=== PATIENT | male | born 1935 | race Caucasian/White ===

== ENCOUNTER 2016-10-13 17:37 | Emergency (ER) | payer MEDICARE, BC ==
[2016-10-13 17:48] VITALS: BP 149/71
--- NOTE | 2016-10-13 18:07 | EDM.PDOC ---
ED HPI GENERAL MEDICAL PROBLEM - General Chief Complaint: Genitourinary Problem Stated Complaint: STOMACH PROB Time Seen by Provider: 10/13/16 17:59 Source of Information: Reports: EMS Notes Reviewed (), Family, RN History Limitations: Reports: No Limitations - History of Present Illness Onset: Today, Gradual Duration: Hour(s): Location: Reports: Abdomen (lower abdomen, felt distended, Haque catheter wasn' t putting out much urine as it mucous plugging) Quality: Reports: Ache, Dull, Pressure Severity: Moderate Improves with: Reports: None Worsens with: Reports: None Context: Reports: Other (Haque cather present for about 3 weeks. Says he has an appointment to be seen in [facility] in December.) Treatments FACE MAN: Reports: Other (see below) (Haque emptied by patient this morning and then had decreased urine output and lower abdominal pain) Lower Abdominal Pain Score (Numeric/FACES): 7 - Related Data Allergies Allergy/AdvReac Type Severity Reaction Status Date / Time No Known Allergies Allergy Verified 10/13/16 17:48 Home Meds: Home Meds Aspirin [Ecotrin] 81 mg PO DAILY 10/13/16 [History] Cyanocobalamin (Vitamin B-12) [Vitamin B-12] 1 tab PO DAILY 10/13/16 [History] Metoprolol Tartrate 25 mg PO DAILY 10/13/16 [History] Niacin 100 mg PO DAILY 10/13/16 [History] Pantoprazole [ProTONIX] 40 mg PO DAILY 10/13/16 [History] Sertraline [Zoloft] 25 mg PO DAILY 10/13/16 [History] Tamsulosin [Flomax] 0.4 mg PO BEDTIME 10/13/16 [History] Social & Family History - Tobacco Use Smoking Status *Q: Never Smoker Second Hand Smoke Exposure: No - Caffeine Use Caffeine Use: Reports: Soda - Recreational Drug Use Recreational Drug Use: No ED ROS GENERAL - Review of Systems Review Of Systems: See Below Constitutional: Reports: No Symptoms HEENT: Reports: Other (slight nasal congestion from viral URI.) Respiratory: Reports: No Symptoms Cardiovascular: Reports: No Symptoms GI/Abdominal: Reports: Abdominal Pain. Denies: Black Stool, Bloody Stool, Nausea (Normal bowel movement today) : Reports: Urinary Retention (Haque cather with decreased output today after the bag was emptied at home) ED EXAM, GI/ABD - Physical Exam Exam: See Below Exam Limited By: No Limitations General Appearance: Alert, WD/WN, No Apparent Distress Eyes: Bilateral: Normal Appearance Ears: Normal External Exam Throat/Mouth: Normal Inspection, Normal Lips, Normal Teeth, Normal Gums, Normal Oropharynx, Normal Voice, No Airway Compromise Head: Atraumatic Respiratory/Chest: Lungs Clear, Normal Breath Sounds Cardiovascular: Regular Rate, Rhythm. No: No Edema (trace, one mm of bilateral ankle edema with some dimpling at sox) GI/Abdominal: Normal Bowel Sounds, Soft, No Abnormal Bruit, Tenderness, Distention, Other (He was feeling better after the Haque catheter was irrigated by his nurse. Abdomen was soft, minimal remaining distention and minimal residual tenderness) (Male) Exam: No Hernia. No: Circumcised, Inguinal Lymphadenopathy, Scrotal Swelling (Haque catheter in place), Scrotum Tenderness (L), Scrotum Tenderness ( R), Testicular Tenderness (L) Extremities: Non-Tender Neurological: Alert, Oriented Psychiatric: Normal Affect, Normal Mood Skin Exam: Warm, Dry Lymphatic: No Adenopathy Course - Vital Signs Last Recorded V/S: Last Vital Signs Temp 98.6 F 10/13/16 17:43 Pulse 83 10/13/16 17:43 Resp 16 10/13/16 17:43 BP 149/71 H 10/13/16 17:43 Pulse Ox 95 10/13/16 17:43 - Orders/Labs/Meds Orders: Active Orders 24 hr Category Date Time Status CULTURE URINE [RM] Stat Lab 10/13/16 17:28 Received Labs: Laboratory Tests 10/13/16 10/13/16 10/13/16 Range/Units 17:48 18:20 18:20 WBC 12.2 H (5.0-10.0) 10^3/uL RBC 4.21 L (4.6-6.2) 10^6/uL Hgb 12.4 L (14.0-18.0) g/dL Hct 38.3 L (40.0-54.0) % MCV 91.0 (80-100) fL MCH 29.5 (27.0-34.0) pg MCHC 32.4 L (33.0-35.0) g/dL Plt Count 241 (150-450) 10^3/uL Neut % (Auto) 80.2 H (42.2-75.2) % Lymph % (Auto) 9.3 L (20.5-50.1) % [place] % (Auto) 9.2 H (2-8) % Eos % (Auto) 1.1 (1.0-3.0) % Baso % (Auto) 0.2 (0.0-1.0) % Sodium 133 L (135-145) mmol/L Potassium 4.0 (3.6-5.0) mmol/L Chloride 100 L (101-111) mmol/L Carbon Dioxide 28.0 (21.0-31.0) mmol/L Anion Gap 9.0 BUN 22 H (7-18) mg/dL Creatinine 1.0 (0.6-1.3) mg/dL Est Cr Clr Drug Dosing 61.43 mL/min Estimated GFR (MDRD) > 60 BUN/Creatinine Ratio 22.00 Glucose 131 H (74-105) mg/dL Calcium 8.5 (8.4-10.2) mg/dl Total Bilirubin 0.8 (0.2-1.0) mg/dL AST 17 (10-42) IU/L ALT 16 (10-60) IU/L Alkaline Phosphatase 63 (42-121) IU/L Total Protein 7.2 (6.7-8.2) g/dl Albumin 3.3 (3.2-5.5) g/dl Globulin 3.9 Albumin/Globulin Ratio 0.85 Urine Color Yellow (YELLOW) Urine Appearance Turbid (CLEAR) Urine pH >= 9.0 (5.0-9.0) Ur Specific [place] 1.010 (1.005-1.030) Urine Protein >=300 H (NEGATIVE) Urine Glucose (UA) Negative (NEGATIVE) Urine Ketones Negative (NEGATIVE) Urine Occult Blood Trace-intact H (NEGATIVE) Urine Nitrite Negative (NEGATIVE) Urine Bilirubin Negative (NEGATIVE) Urine Urobilinogen 2.0 H (0.2-1.0) mg/dL Ur Leukocyte Esterase Moderate H (NEGATIVE) Urine RBC 10-20 H /HPF Urine WBC 20-30 H (0-5/HPF) /HPF Ur Epithelial Cells Rare /HPF Triple Phos Crystals Many H /HPF Amorphous Sediment Many (0/HPF) /HPF Urine Bacteria Many H (0-FEW/HPF) /HPF Meds: Medications Discontinued Medications Generic Name Dose Route Start Last Admin Trade Name Celine PRN Reason Stop Dose Admin Ciprofloxacin 500 mg 10/13/16 19:02 Ciprofloxacin Hcl PO 10/13/16 19:03 ONETIME ONE Departure - Departure Time of Disposition: 19:12 Disposition: Home, Self-Care 01 Condition: good Clinical Impression: UTI, Urinary tract infectious disease Obstruction of Haque catheter Qualifiers: Encounter type: initial encounter Qualified Code(s): T83.091A - Other mechanical complication of indwelling urethral catheter, initial encounter - Discharge Information Instructions: Urinary Tract Infection, Adult, [id number], Haque Catheter Care , Adult Forms: ED Department Discharge Additional Instructions: Take Cipro 500 mg tablet every 12 hours for the next 10 days. Drink plenty of water/ fluids. Take other medications as prescribed by your doctor. Call and make an appointment to be seen by a urologist in [place], [place]. See your doctor in 10-12 days. - My Orders Last 24 Hours: My Active Orders 10/13/16 17:28 CULTURE URINE [RM] Stat - Assessment/Plan Last 24 Hours: My Active Orders 10/13/16 17:28 CULTURE URINE [RM] Stat
[2016-10-13 18:46] LABS: CHLORIDE,CL 100 mmol/L (101-111); SODIUM,NA 133 mmol/L (135-145)
[2016-10-13] MEDS ORDERED: Ciprofloxacin 500 MG Tab PO ONE (19:02)
== END 2016-10-13 19:25 | disposition home or self-care (01) ==
LOC: DL.ED 17:37
DX: T83.091A Other mechanical complication of indwelling urethral catheter, initial encounter (principal); N39.0 Urinary tract infection, site not specified; Z79.82 Long term (current) use of aspirin; Z79.899 Other long term (current) drug therapy
CPT/HCPCS: 36415; 80053; 81001; 85025; 87086; 87088; 87186; 99283; A9270

== ENCOUNTER 2018-06-06 06:19 | Day surgery (SDC) | payer MEDICARE, BC ==
[~2018-06-06 06:19] MED LIST: Midazolam 1 MG/ML 2 ML SDV ONE; fentaNYL 100 MCG/2 ML SDV ONE
[2018-06-06] MEDS ORDERED: Midazolam 1 MG/ML 2 ML SDV IV ONE ×2 (06:20→07:46)
[2018-06-06] MEDS ORDERED: fentaNYL 100 MCG/2 ML SDV IV ONE ×2 (06:20→07:44)
[2018-06-06] MEDS ORDERED: Dextrose 5%-0.45% NaCl 1,000 ML IV SCH (07:00)
--- NOTE | 2018-06-06 08:44 | OR ---
DATE: 06/06/2018 PROCEDURES: Esophagogastroduodenoscopy and multiple pinch biopsies. INSTRUMENT USED: GIF-H180 Olympus video panendoscope. PREMEDICATIONS: No oral topical anesthesia used. Fentanyl 50 mcg intravenous, Versed 1 mg intravenous. Nasal O2 cannula. The procedure was done under pulse oximetry, BP recording, and diesel fitter mechanic. INDICATION: The patient with persistent nausea and dyspepsia unexplained and not responsive to medical measures, on PPI. Esophagogastroduodenoscopy is performed for detection of any active erosive lesions. العر[place] esophagus and/or malignancy also under consideration. Biopsies to be obtained for any evidence of H. pylori. Endoscopic hemostasis therapy if needed. DESCRIPTION OF PROCEDURE: The scope was passed with ease. Adequate visualization of the esophagus was made from proximal to distal areas. No upper esophageal lesions identified. No distal esophageal stricture. No uphill or downhill esophageal varices. No Felecia-Shirley tear. No esophageal polyp or tumor mass identified. Z-line was seen at around 40 cm distal to the oral verge, configuration consistent with grade 1 by ZAP classification. No proximal gastric varices noted. Gastric fundus examination by retroflexion showed no malignant lesions. Diminutive benign-appearing multiple gastric fundus polyps were noted. No gastric ulcer, malignant mass, or vascular ectasia identified. Duodenal bulb showed no ulcer. Visualized second part of the duodenum was unremarkable. Multiple pinch biopsies were taken from the gastric antrum and proximal body and sent for PyloriTek test for H. pylori, and if negative in an hour, the tissue is to be sent for histopathology. No bleeding was noted from any of the visualized areas at the completion of examination. Photographs were taken of the duodenal bulb, gastric antrum, fundus, and distal esophagus. IMPRESSION: Diminutive gastric fundus polyps. The patient tolerated the procedure well. [facility] /[id number]
[2018-06-06 10:35] VITALS: BP 150/80
== END 2018-06-06 09:50 | disposition home or self-care (01) ==
LOC: DL.ENDO 06:19
PROVIDERS: ATTEND Internal Medicine Gastroenterology
DX: K29.50 Unspecified chronic gastritis without bleeding (principal); K31.7 Polyp of stomach and duodenum; I10 Essential (primary) hypertension; I48.0 Paroxysmal atrial fibrillation; K21.9 Gastro-esophageal reflux disease without esophagitis; E78.00 Pure hypercholesterolemia, unspecified; F41.1 Generalized anxiety disorder
CPT/HCPCS: 43239; 87077; J2250; J3010; J7042

== ENCOUNTER 2018-06-11 06:52 | Day surgery (SDC) | payer MEDICARE, BC ==
[~2018-06-11 06:52] MED LIST changes: +Dextrose 5%-0.45% NaCl 1,000 ML IV SCH; +Sodium Chloride 0.9% 10 ML Syringe FLUSH PRN
[2018-06-11] MEDS ORDERED: Midazolam 1 MG/ML 2 ML SDV IV ONE ×4 (06:53→07:59)
[2018-06-11] MEDS ORDERED: fentaNYL 100 MCG/2 ML SDV IV ONE ×3 (06:53→07:54)
--- NOTE | 2018-06-11 09:33 | OR ---
DATE: 06/11/2018 PROCEDURES: Total colonoscopy, narrow-band imaging, and snare polypectomy. INSTRUMENT USED: PCF-H180 [place] Olympus video colonoscope. PREMEDICATIONS: Fentanyl 100 mcg intravenous, Versed 2 mg intravenous. Nasal O2 cannula. The procedure was done under pulse oximetry, BP recording, and nurse monitoring. INDICATION: The patient with left-sided abdominal pain unexplained and not responsive to medical measures. Colonoscopic examination is done for detection of any polypoid lesions and removal. Endoscopic hemostasis therapy if needed. DESCRIPTION OF PROCEDURE: Initial rectal exam was unremarkable. Rigid anoscopy was normal. The colonoscope was passed with ease. Scattered diverticula were noted in the distal left colon along with some deformity. The scope was passed with ease up to the ileocecal area. Photographs were taken of the normal-appearing cecum identified by landmarks of appendiceal orifice and double-bulged ileocecal folds. No bleeding was noted from any of the visualized areas at the commencement of the examination. The bowel preparation was found to be adequate, [place] Scale 2. No stricture. No vascular ectasia. No large isolated ulcerations seen. No evidence of diffuse inflammatory bowel disease in the form of friability, contact bleeding, or ulcerations. In the proximal ascending colon, 1-cm sized benign-appearing pedunculated polyp was noted. NBI views were taken. Photographs were obtained. Snare polypectomy was done. The tissue was retrieved and sent for histopathology. Polypectomy site was found to be clean. Probing the proximal sides of folds and flexures, using adequate distention and clearing up the stool material, withdrawal of the scope was made. [id number] time over 6 minutes. No bleeding was noted from any of the visualized areas at the completion of examination. IMPRESSION: 1. Diverticulosis. 2. Ascending colon polyp. The patient tolerated the procedure well. [facility] /[id number]
[2018-06-11 11:27] VITALS: BP 160/57
== END 2018-06-11 10:20 | disposition home or self-care (01) ==
LOC: DL.ENDO 06:52
PROVIDERS: ATTEND Internal Medicine Gastroenterology
DX: R10.33 Periumbilical pain (principal); D12.2 Benign neoplasm of ascending colon; K57.30 Diverticulosis of large intestine without perforation or abscess without bleeding; I10 Essential (primary) hypertension; E78.00 Pure hypercholesterolemia, unspecified; F41.1 Generalized anxiety disorder; I48.0 Paroxysmal atrial fibrillation
CPT/HCPCS: 45385; J2250; J3010; J7042

== ENCOUNTER 2021-03-24 15:15 | Emergency (ER) | payer MEDICARE, BC ==
--- NOTE | 2021-03-24 15:47 | EDM.PDOC ---
ED HPI GENERAL MEDICAL PROBLEM - General Stated Complaint: ER Time Seen by Provider: 03/24/21 15:52 Source of Information: Reports: Patient, Other (Dr. Alfonso) History Limitations: Reports: No Limitations - History of Present Illness INITIAL COMMENTS - FREE TEXT/NARRATIVE: 85 y/o M brought in at the request of Dr. Alfonso for splinting of his L arm. Pt reported he fell today and it was reported that he fractured his left arm. Naty requested a splint be placed on the fractured arm. Pt c/o 2/10 l forearm pain. He has no other complaints and reports no other injury from the fall. - Related Data Allergies Allergy/AdvReac Type Severity Reaction Status Date / Time No Known Allergies Allergy Verified 06/11/18 07:23 Home Meds: Home Meds Aspirin [Ecotrin EC] 81 mg PO DAILY 10/13/16 [History] Cyanocobalamin (Vitamin B-12) [Vitamin B-12] 1 tab PO DAILY 10/13/16 [History] Metoprolol Tartrate 25 mg PO BID 10/13/16 [History] Niacin 100 mg PO DAILY 10/13/16 [History] Pantoprazole [ProTONIX] 40 mg PO DAILY 10/13/16 [History] Sertraline [Zoloft] 25 mg PO DAILY 10/13/16 [History] Cholecalciferol (Vitamin D3) [Vitamin D3] 1,000 units PO DAILY 06/05/18 [History] LORazepam 0.5 mg PO ASDIRECTED PRN 06/05/18 [History] atorvaSTATin [Lipitor] 40 mg PO DAILY 06/05/18 [History] Past Medical History HEENT History: Reports: Hard of Hearing, Impaired Vision Other HEENT History: wear glasses Cardiovascular History: Reports: Afib, Hypertension Respiratory History: Reports: None Gastrointestinal History: Reports: GERD Genitourinary History: Reports: Other (See Below) Other Genitourinary History: has had a catheter for the last 3 weeks, couldn't pass his urine Musculoskeletal History: Reports: None Other Musculoskeletal History: Multiple sclerosis, degenerative joint disease Neurological History: Reports: MS Psychiatric History: Reports: None Endocrine/Metabolic History: Reports: None Hematologic History: Reports: None Immunologic History: Reports: None Oncologic (Cancer) History: Reports: None Dermatologic History: Reports: None - Infectious Disease History Infectious Disease History: Reports: Chicken Pox - Past Surgical History Head Surgeries/Procedures: Reports: None HEENT Surgical History: Reports: Tonsillectomy Cardiovascular Surgical History: Reports: None Respiratory Surgical History: Reports: None GI Surgical History: Reports: Hernia Repair/Other, Kieran Fundoplication Other GI Surgeries/Procedures: hiatal hernia surg Male Surgical History: Reports: Other (See Below) Other Male Surgeries/Procedures: cleaned out prostate Musculoskeletal Surgical History: Reports: Other (See Below) Other Musculoskeletal Surgeries/Procedures:: L) hip arthroplasty Dermatological Surgical History: Reports: Skin Biopsy Social & Family History - Family History Family Medical History: No Pertinent Family History - Caffeine Use Caffeine Use: Reports: Soda Other Caffeine Use: occasional Review of Systems - Review of Systems Review Of Systems: Comprehensive ROS is negative, except as noted in HPI. ED EXAM, GENERAL - Physical Exam Exam: See Below Course - Vital Signs Last Recorded V/S: Last Vital Signs Temp Pulse 58 L 03/24/21 16:43 Resp 20 03/24/21 16:43 BP Pulse Ox 96 03/24/21 16:43 - Re-Assessments/Exams Free Text/Narrative Re-Assessment/Exam: 03/24/21 15:44 Dr. Alfonso states she will see the pt next week and cast his fracture then. Departure - Departure Time of Disposition: 15:44 Disposition: Home, Self-Care 01 Condition: Good Clinical Impression: Arm fracture Qualifiers: Encounter type: initial encounter Fracture type: closed Laterality: left Qualified Code(s): S42.302A - Unspecified fracture of shaft of humerus, left arm, initial encounter for closed fracture - Discharge Information *PRESCRIPTION DRUG MONITORING PROGRAM REVIEWED*: Not Applicable *COPY OF PRESCRIPTION DRUG MONITORING REPORT IN PATIENT JACKIE: Not Applicable Additional Instructions: Use tylenol and motrin for pain as needed. Ice and elevate extremity. Do not get the splint wet. Follow up with Dr. Alfonso next week to have the fracture casted.
[2021-03-24 16:45] VITALS: PULSE 58
== END 2021-03-24 16:48 | disposition home or self-care (01) ==
LOC: DL.ED 15:15
DX: S42.302A Unspecified fracture of shaft of humerus, left arm, initial encounter for closed fracture (principal); I10 Essential (primary) hypertension; I48.91 Unspecified atrial fibrillation; K21.9 Gastro-esophageal reflux disease without esophagitis; Z79.82 Long term (current) use of aspirin; Z79.899 Other long term (current) drug therapy; W19.XXXA Unspecified fall, initial encounter
CPT/HCPCS: 99283

== ENCOUNTER 2022-04-14 13:10 | Emergency (ER) | payer BC, MEDICARE ==
[2022-04-14] MEDS ORDERED: Ciprofloxacin 500 MG Tab PO ONE ×3 (13:11→16:05)
[2022-04-14] MEDS ORDERED: Sodium Chloride 0.9% 10 ML Syringe FLUSH PRN (13:11)
[2022-04-14 13:31] VITALS: BP 115/59; PULSE 68
[2022-04-14 14:19] LABS: ANION GAP 10.7 mEq/L (7-13); CHLORIDE,CL 99 mmol/L (98-107); SODIUM,NA 136 mmol/L (136-145)
[2022-04-14 14:28] LABS: ESTIMATED GFR 68 mL/min (>=60)
[2022-04-14] MEDS ORDERED: Ciprofloxacin 500 MG Tab ONE (17:13)
== END 2022-04-14 17:22 | disposition home or self-care (01) ==
LOC: DL.ED 13:10
DX: N30.01 Acute cystitis with hematuria (principal); I10 Essential (primary) hypertension; Z79.899 Other long term (current) drug therapy; Z79.82 Long term (current) use of aspirin
CPT/HCPCS: 36415; 70450; 80053; 81001; 83605; 83735; 85025; 86140; 87086; 87088; 87186; 93005; 99284; A9270; J3490

== ENCOUNTER 2022-10-22 16:12 | Inpatient (IN) | payer BC, MEDICARE, OTHER ==
[2022-10-22] MEDS ORDERED: LORazepam 2 MG/ML SDV IVPUSH ONE (16:21)
[2022-10-22 16:34] LABS: BASOPHILS PERCENT AUTO 0.3 % (0.0-1.0); EOSINOPHILS PERCENT AUTO 3.5 % (1.0-3.0); HEMATOCRIT 39.1 % (40.0-54.0); HEMOGLOBIN 12.5 g/dL (14.0-18.0); LYMPHOCYTES PERCENT AUTO 19.1 % (20.5-50.1); MEAN CORPUSCULAR HEMOGLOBIN 29.3 pg (27.0-34.0); MEAN CORPUSCULAR VOLUME 91.6 fL (80-100); MONOCYTES PERCENT AUTO 14.7 % (2-8); NEUTROPHILS PERCENT AUTO 62.4 % (42.2-75.2); PLATELET COUNT,PLT 250 10^3/uL (150-450); RED BLOOD CELL COUNT 4.27 10^6/uL (4.6-6.2); WHITE BLOOD CELL COUNT,WBC 11.9 10^3/uL (5.0-10.0)
[2022-10-22] MEDS ORDERED: Ondansetron 4 MG/2 ML SDV ONE (16:36)
[2022-10-22] MEDS ORDERED: Ondansetron 4 MG/2 ML SDV IVPUSH ONE (16:39)
[2022-10-22] MEDS ORDERED: levETIRAcetam in NaCl (iso-os) 1,000 MG in Premix Bag 1 BAG IV ONE ×2 (16:39)
[2022-10-22 17:02] LABS: LACTIC ACID 7.8 mmol/L (0.4-2.0)
[2022-10-22 17:03] LABS: ALANINE AMINOTRANSFERASE,ALT 22 U/L (16-63); ALBUMIN 3.2 g/dL (3.4-5.0); ALKALINE PHOSPHATASE 100 U/L (46-116); ANION GAP 19.1 mEq/L (7-13); ASPARTATE AMNIOTRANSFERASE,AST 14 U/L (15-37); BILIRUBIN TOTAL 0.6 mg/dL (0.2-1.0); BLOOD UREA NITROGEN,BUN 28 mg/dL (7-18); BUN/CREATININE RATIO 19.2 (No establ ref range); C-REACTIVE PROTEIN 8.5 mg/dL (0.0-0.9); CALCIUM 9.4 mg/dL (8.5-10.1); CARBON DIOXIDE,CO2 24 mmol/L (21-32); CHLORIDE,CL 99 mmol/L (98-107); CREATININE 1.46 mg/dL (0.70-1.30); GLUCOSE RANDOM 180 mg/dL (70-99); MAGNESIUM 2.1 mg/dL (1.8-2.4); POTASSIUM,K 4.1 mmol/L (3.5-5.1); PROTEIN TOTAL,TP 8.3 g/dL (6.4-8.2); SODIUM,NA 138 mmol/L (136-145)
[2022-10-22 17:04] LABS: A/G RATIO 0.63; ESTIMATED GFR 46 mL/min (>=60); ETHANOL BLOOD MEDICAL < 3 mg/dL (0)
[2022-10-22 17:50] VITALS: BP 181/83; PULSE 75
[2022-10-22] MEDS ORDERED: Polyethylene Glycol 3350 Powder 17 GM Packet PO PRN (20:07)
[2022-10-22] MEDS ORDERED: Sodium Chloride 0.9% 10 ML Syringe FLUSH PRN (20:07)
[2022-10-22] MEDS ORDERED: Magnesium Hydroxide 400 MG/5 ML Susp 30 ML Cup PO PRN (20:07)
[2022-10-22] MEDS ORDERED: Albuterol/Ipratropium 3.0-0.5 MG/3 ML Neb Soln NEB PRN (20:07)
[2022-10-22] MEDS ORDERED: Ondansetron 4 MG/2 ML SDV IVPUSH PRN (20:07)
[2022-10-22] MEDS ORDERED: LORazepam 2 MG/ML SDV IVPUSH PRN (20:09)
[2022-10-22] MEDS ORDERED: Morphine 10 MG/0.5 ML Oral Syringe PO PRN (20:09)
[2022-10-22] MEDS ORDERED: Scopolamine 1.5 MG Transdermal Patch TOP ONE (20:12)
[2022-10-22] MEDS ORDERED: Sodium Chloride 0.9% 10 ML Syringe FLUSH SCH (21:00)
[2022-10-22] MEDS: Atropine 1% Ophth Soln 5 ML Bottle SL SCH ×2 (23:05→23:31)
[2022-10-22] MEDS ORDERED: Morphine 4 MG/ML Syringe IVPUSH PRN (23:09)
[2022-10-23] MEDS ORDERED: LORazepam 2 MG/ML SDV IVPUSH PRN (00:55)
[2022-10-23] MEDS ORDERED: Morphine 10 MG/ML Syringe IVPUSH PRN (00:57)
[2022-10-23] MEDS: Atropine 1% Ophth Soln 5 ML Bottle SL SCH (02:44)
== END 2022-10-23 03:29 | disposition expired | DRG 951 ==
LOC: DL.ED 16:12 → DL.MS 18:11 → DL.ED 18:22
PROVIDERS: ADMIT Nurse Practitioner Family; ATTEND Nurse Practitioner Family
DX: Z51.5 Encounter for palliative care (principal); N17.9 Acute kidney failure, unspecified; E87.20 Acidosis, unspecified; I10 Essential (primary) hypertension; E78.5 Hyperlipidemia, unspecified; Z66 Do not resuscitate; R56.9 Unspecified convulsions; I48.91 Unspecified atrial fibrillation; K21.9 Gastro-esophageal reflux disease without esophagitis; G35 Multiple sclerosis; M19.90 Unspecified osteoarthritis, unspecified site; F03.90 Unspecified dementia, unspecified severity, without behavioral disturbance, psychotic disturbance, mood disturbance, and anxiety; E53.8 Deficiency of other specified B group vitamins; F32.A Depression, unspecified; E11.65 Type 2 diabetes mellitus with hyperglycemia; H91.90 Unspecified hearing loss, unspecified ear; F41.9 Anxiety disorder, unspecified; Z79.82 Long term (current) use of aspirin; Z79.899 Other long term (current) drug therapy; Z79.84 Long term (current) use of oral hypoglycemic drugs; Z85.46 Personal history of malignant neoplasm of prostate; Z98.890 Other specified postprocedural states
CPT/HCPCS: 36415; 70450; 71045; 80053; 80307; 83605; 83735; 84443; 85025; 86140; 96374; 96375; 99285; 99285-25; A9270-GY; J1953; J2060; J2270; J2405; J3490